=== PATIENT | male | born 1990 | race Caucasian/White ===

== ENCOUNTER 2021-02-09 22:25 | Emergency (ER) | payer OTHER ==
[~2021-02-09 22:25] MED LIST: PENICILLIN VK500 MG PO
== END 2021-02-09 22:42 | disposition left against medical advice (07) ==
LOC: M.ERS 22:25
DX: H57.10 Ocular pain, unspecified eye (principal); Z53.21 Procedure and treatment not carried out due to patient leaving prior to being seen by health care provider